=== PATIENT | female | born 1965 | race Caucasian/White ===

== ENCOUNTER 2018-12-01 05:12 | Emergency (ER) | payer BC ==
[~2018-12-01] VITALS: Ht 170.2 cm; Wt 83.6 kg
[2018-12-01 06:27] LABS: BASO # 0.1 10^3/uL (0.0-0.2); BASO % 0.9 % (0.0-1.0); EOS # 0.2 10^3/uL (0.0-0.50); EOS % 2.5 % (0.0-3.0); HEMOGLOBIN 12.6 g/dl (12.0-15.5); LYMPH # 1.4 10^3/uL (1.5-4.5); LYMPH % 18.3 % (24.0-44.0); MEAN CORPUSCULAR HEMOGLOBIN 30.4 pg (27.0-33.0); MEAN CORPUSCULAR HGB CONC 33.2 g/dl (32.0-36.5); MEAN CORPUSCULAR VOLUME 91.8 fl (80.0-96.0); MONO # 0.6 10^3/uL (0.0-0.8); MONO % 7.5 % (0.0-5.0); NEUTROPHILS # 5.3 10^3/uL (1.8-7.7); NEUTROPHILS % 70.3 % (36.0-66.0); PLATELET COUNT, AUTOMATED 265 10^3/uL (150-450); RED BLOOD COUNT 4.14 10^6/uL (4.00-5.40); WHITE BLOOD COUNT 7.6 10^3/uL (4.0-10.0)
[2018-12-01 06:53] LABS: ALT/SGPT 20 U/L (12-78); BILIRUBIN,DIRECT 0.1 MG/DL (0.0-0.2); BILIRUBIN,TOTAL 0.6 MG/DL (0.2-1.0); BLOOD UREA NITROGEN 17 MG/DL (7-18); CALCIUM LEVEL 9.3 MG/DL (8.5-10.1); CARBON DIOXIDE LEVEL 27 MEQ/L (21-32); CHLORIDE LEVEL 107 MEQ/L (98-107); CK-MB VALUE MASS < 1.0 NG/ML (<3.6); CPK CREATINE PHOSPHOKINASE 51 U/L (26-192); GLOMERULAR FILTRATION RATE 55.5 (>51); GLUCOSE, FASTING 89 MG/DL (70-100); LIPASE 148 U/L (73-393); MB/CK RELATIVE INDEX 1.96 (< OR =4); SODIUM LEVEL 141 MEQ/L (136-145); TOTAL PROTEIN 7.1 GM/DL (6.4-8.2); TROPONIN I < 0.02 NG/ML (< 0.10)
--- NOTE | 2018-12-01 07:58 | REP ---
Clinical: Acute chest pain . Comparison: None . Findings: The mediastinum and cardiac silhouette are stable and within normal limits for portable technique. The lung briggs are clear without acute consolidation, effusion, or pneumothorax. Skeletal structures are intact. Impression: No acute cardiopulmonary process appreciated. Electronically Signed by Josh Ge MD 12/01/2018 07:50 A
[2018-12-01 08:01] LABS: INR 1.01; PARTIAL THROMBOPLASTIN TIME 26.4 SECONDS (25.0-38.4)
[2018-12-01 09:47] LABS: CK-MB VALUE MASS < 1.0 NG/ML (<3.6); CPK CREATINE PHOSPHOKINASE 49 U/L (26-192); MB/CK RELATIVE INDEX 2.04 (< OR =4); TROPONIN I < 0.02 NG/ML (< 0.10)
[2018-12-01 10:08] VITALS: BP 110/75
--- NOTE | 2018-12-02 07:10 | ECGEPIP ---
[facility] - ED Test Date: 2018-12-01 Pat Name: TARIQ HOLLIS Department: Room: - Gender: Female Peace Officer: BRETT : 1965 Requested By: RICHARD MAC Order Number: [id number] Reading MD: Mirian Rome Measurements Intervals [place] Rate: 54 P: 33 HI: 146 QRS: 35 QRSD: 83 T: 23 QT: 435 QTc: 414 Interpretive Statements SINUS BRADYCARDIA NSTTW abnormalities NO PRIOR Electronically Signed on 12-02-2018 7:10:28 EDT by Mirian Rome
--- NOTE | 2018-12-02 07:12 | ECGEPIP ---
[facility] - ED Test Date: 2018-12-01 Pat Name: TARIQ HOLLIS Department: Room: - Gender: Female Customer Consulting Manager: : 1965 Requested By: RICHARD MAC Order Number: [id number] Reading MD: Mirian Rome Measurements Intervals [place] Rate: 58 P: 33 NE: 148 QRS: 45 QRSD: 86 T: 28 QT: 396 QTc: 391 Interpretive Statements SINUS BRADYCARDIA NONSPECIFIC T-WAVE ABNORMALITY SIMILAR 5:39 Electronically Signed on 12-02-2018 7:11:31 EDT by Mirian Rome
== END 2018-12-01 10:09 | disposition home or self-care (01) ==
LOC: M ED 05:12
DX: R07.9 Chest pain, unspecified (principal); I10 Essential (primary) hypertension; E03.9 Hypothyroidism, unspecified; Z88.1 Allergy status to other antibiotic agents; Z88.2 Allergy status to sulfonamides